=== PATIENT | female | born 1975 | race Caucasian/White ===

== ENCOUNTER 2016-04-25 15:38 | Emergency (ER) | payer OTHER ==
[~2016-04-25 15:38] MED LIST: BACTRIM DS DPS1 TAB PO; PERCOCET 10 DPS1 TAB PO
--- NOTE | 2016-04-28 15:19 | ER ---
ADMIT: 04/25/2016 RM/LOC: [facility] MR#: [id number] [place], [place] [id number] PATRIA CARRION [address] [place] [address] Emergency Room Report SEX: F AGE: 41 : 1975 DATE: 04/25/2016 HISTORY OF PRESENT ILLNESS: Patria is a 41-year-old female, presents to the emergency room complaining of abdominal pain for the last 2 weeks. She says in the left lower quadrant she has been having pain. She has some nausea, but no vomiting. REVIEW OF SYSTEMS: Negative otherwise. She denies any shortness of breath. No bloody or dark urine. No black or bloody stools. No constipation. No headache. No anxiety or depression. Last bowel movement was this morning. PAST MEDICAL HISTORY: Cholecystitis with cholecystectomy, and she has had a tubal ligation. See T-sheet for medications and allergies. PHYSICAL EXAMINATION: VITAL SIGNS: Blood pressure 118/80 with a heart rate of 103, so slightly tachycardic. GENERAL: She is mildly anxious. BACK: Normal inspection. ABDOMEN: Mid to left lower quadrant. CT of the abdomen does show an ovarian cyst ruptured. She was given a bag of fluids with Zofran, Toradol, fentanyl, and she is going to be discharged with ketorolac for home use. DIAGNOSES: 1. Ruptured ovarian cyst. 2. Abdominal pain, left lower quadrant. INSTRUCTION: See T-sheet. SMAARIA Casey / Rusty Jose MD / modl JOB #: [id number] CC: Rusty Jose MD, Attending Physician Gayla Lopez MD, Family Physician
== END 2016-04-25 19:28 | disposition home or self-care (01) ==
LOC: ER 15:38
DX: N83.202 Unspecified ovarian cyst, left side (principal); R10.32 Left lower quadrant pain; Z98.51 Tubal ligation status; Z88.0 Allergy status to penicillin

== ENCOUNTER 2016-06-15 18:30 | Emergency (ER) | payer OTHER ==
--- NOTE | 2016-06-20 13:49 | ER ---
ADMIT: 06/15/2016 RM/LOC: ER [facility] MR#: [id number] [facility] [address] [place], [place] [address] LUIS ECONRAD EVANS Yue [address] [place] [id number] Emergency Room Report SEX: F AGE: 41 : 1975 DATE: 06/15/2016 HISTORY OF PRESENT ILLNESS: The patient is a 41-year-old female with no significant past medical history, came to the ER with chief complaint of right upper quadrant and mostly epigastric pain, which started 8 hours ago and the patient also has some nausea without vomiting. The patient denies similar pain in the past. The patient states that the pain mildly increases with palpation of the epigastric area. The patient had normal bowel movement. PHYSICAL EXAMINATION: VITAL SIGNS: The patient has stable vitals. GENERAL: In moderate distress. The patient was alert and oriented. HEAD AND NECK: Noncontributory. Mucous membrane was wet. RESPIRATIONS: Normal equal breath sounds bilaterally. HEART: Normal heart sounds without any extra sounds. ABDOMEN: Has very mild tenderness in right upper quadrant and epigastric area without any rebound or guarding. The rest of the physical exam was noncontributory. The patient has a history of cholecystectomy. The patient's pain was controlled. The patient received morphine and GI cocktail. The pain was moderately controlled. CMP was normal. Lipase was 111, white BC was 14.7 with hemoglobin of 15.2. UA was also normal. Urine was negative. CT of abdomen and pelvis was suggestive of hiatal hernia and possible gastroesophageal reflux disease. The patient received Protonix IV 40 mg and Reglan IV. The patient felt better. The pain was mostly resolved and nausea was controlled. PLAN: The patient was stable and was discharged to home with Protonix and Reglan and follow up with the primary doctor. The patient acknowledged she understood the plan and had benign abdominal exam and was discharged to home. Jensen Garrido MD/ lakiesha JOB #: [id number] CC: Henri Funez MD, Attending Physician Agus Aceves MD, Family Physician
== END 2016-06-15 22:05 | disposition home or self-care (01) ==
LOC: ER 18:30
DX: K21.9 Gastro-esophageal reflux disease without esophagitis (principal); K44.9 Diaphragmatic hernia without obstruction or gangrene; Z90.49 Acquired absence of other specified parts of digestive tract